=== PATIENT | female | born 1930 | race Caucasian/White ===

== ENCOUNTER 2016-08-03 11:01 | Day surgery (SDC) | payer MEDICARE, BC ==
[~2016-08-03 11:01] MED LIST: ACETAMINOPHEN325 M1 PO; ALIGN4 MG PO; ASPIR 8181 M1 PO; ASPIRIN81 MG; ASPIRIN81 MG PO; CALCIUM ANTACI500 MG; CALCIUM CARBON500 M2 PO; CALCIUM500 MG; CENTRUM SILVER1 TA; CIPRO250 M1 PO; CIPRO250 M2 PO; CIPRO500 MG PO; COLACE-T50 MG; COLACE100 M1 PO; COLACE100 MG PO; DEBROX15 M1 EACH EAR; ESTRADIOL; FEOSOL325 M1 PO; FERROUS SULFAT325 MG PO; GAVISCON 80-141 EACH PO; GAVISCON PO; GLUCOSAMINE500 MG PO; IMDUR60 MG; IMDUR60 MG PO; ISOSORBIDE MONO60 M3 PO; ISOSORBIDE MONO60 MG PO; KEFLEX500 M4 PO; KEFLEX500 MG PO; LEVOXYL75 MCG; LIDODERM1 EACH TP; LIPITOR20 M1 PO; LIPITOR20 MG; LIPITOR20 MG PO; LIPITOR40 MG; LISINOPRIL20 MG; LISINOPRIL20 MG PO; LOPRESSOR100 MG PO; MACROBID 100 M100 M1 PO; MACROBID100 MG/CAP PO; MEDROXYPROGESTER5 MG; METAMUCIL1 PKT PO; MULTI VITAMIN1 EAC1 PO; MULTIVITAMIN1 TAB PO; MULTIVITAMINS1 EAC6 PO; MULTIVITAMINS1 EAC7 PO; NABUMETONE500 MG; NABUMETONE500 MG PO; NITROTAB0.4 MG; NON-ASPIRIN PA325 M1 PO; NORVASC2.5 MG; OCUTABS TABLET1 EACH PO; OMEPRAZOLE20 M4 PO; OMEPRAZOLE40 M2 PO; PHENERGAN PO; PLAVIX75 MG; PRILOSEC OTC20 MG PO; PRILOSEC20 MG; PRILOSEC20 MG PO; PRINIVIL20 M1 PO; PRINIVIL20 MG PO; PROVERA5 MG; RELAFEN500 MG; ROBITUSSIN COU PO; ROBITUSSIN COU118 M7 PO; SMZ-TMP DS TABL1 TAB; SYNTHROID50 MC1 PO; SYNTHROID75 MCG PO; THERAGRAN-M1 TAB; TOPROL XL100 M1 PO; TOPROL XL100 MG; TOPROL XL100 MG PO; TOPROL XL25 M1 PO; TRAMADOL HCL50 M2 PO; TRAMADOL HCL50 MG PO; TUMS ULTRA1000 M1 PO; TUMS ULTRA1000 MG; TUMS ULTRA1000 MG PO; TYLENOL EXTRA500 M1 PO; TYLENOL EXTRA500 MG PO; TYLENOL325 M2 PO; TYLENOL325 MG PO; TYLENOL500 MG; ULTRAM50 MG PO; UTI-STAT L3875 MG/31 PO; VISION VITAMIN1 EAC1 PO; VISION VITAMIN1 EAC2 PO; VISION VITAMIN1 EACH PO; VITAMIN D1000 UNI2 PO; VITAMIN D1000 UNIT PO; VIVELLE1 PATCH.BW; ZOFRAN ODT4 MG/UDTAB PO; ZOFRAN4 MG PO; ZOLOFT25 M1 PO; [UNRECOGNIZED DRUG - OTHER]
== END 2016-08-03 14:00 ==
LOC: ENDOS 11:01 → SHSC 11:02 → ENDOS 12:45
PROC: 0DJ08ZZ Inspection of Upper Intestinal Tract, Via Natural or Artificial Opening Endoscopic (ICD-10-PCS; principal; 2016-08-03)
DX: K22.8 Other specified diseases of esophagus (principal); K44.9 Diaphragmatic hernia without obstruction or gangrene; I10 Essential (primary) hypertension; E78.5 Hyperlipidemia, unspecified; E03.9 Hypothyroidism, unspecified; F03.90 Unspecified dementia, unspecified severity, without behavioral disturbance, psychotic disturbance, mood disturbance, and anxiety; F41.9 Anxiety disorder, unspecified; F32.9 Major depressive disorder, single episode, unspecified; Z88.0 Allergy status to penicillin; Z88.6 Allergy status to analgesic agent; Z88.8 Allergy status to other drugs, medicaments and biological substances; Z79.899 Other long term (current) drug therapy; Z86.010 Personal history of colon polyps; Z90.49 Acquired absence of other specified parts of digestive tract; Z98.890 Other specified postprocedural states